=== PATIENT | female | born 1980 | race Two or more races ===

== ENCOUNTER → 2017-05-28 | Outpatient (CLI) | payer BC ==
[2017-05-28 12:16] LABS: INFLUENZA A PATIENT NEGATIVE (NEGATIVE); INFLUENZA B PATIENT NEGATIVE (NEGATIVE); OBC FLU VALID
[2017-05-28 19:14] LABS: C DIFF BY PCR Negative (Negative)
== END | disposition home or self-care (01) ==
LOC: LAB 10:22
DX: O09.512 Supervision of elderly primigravida, second trimester (principal); O26.892 Other specified pregnancy related conditions, second trimester; R19.7 Diarrhea, unspecified; Z3A.00 Weeks of gestation of pregnancy not specified
CPT/HCPCS: 36415; 87045; 87324; 87804; 87804-59